=== PATIENT | female | born 1970 | race American Indian/Alaskan Native ===

== ENCOUNTER 2019-09-03 10:30 | Observation (INO) | payer BC, MEDICARE ==
--- NOTE | 2019-09-03 11:07 | Consultation ---
History of Present Illness History of present illness: [facility] Date of Service:09/03/2019 10:50:04 Impression: RO Acute Ischemic Stroke Comments: 49 YO F with h/o DM, multiple strokes with residual mild left sided weakness and HTN presented with worsening left sided weakness and new onset numbness, recurrence of old stroke symptoms vs new stroke. Metrics: Last Known Well: 09/03/2019 03:00:00 [facility] Notification Time: 09/03/2019 10:49:15 Arrival Time: 09/03/2019 10:30:00 Stamp Time: 09/03/2019 10:50:04 Time First Login Attempt: 09/03/2019 10:53:56 Video Start Time: 09/03/2019 10:53:56 Symptoms: left sided weakness NIHSS Start Assessment Time: 09/03/2019 10:59:46 Patient is not a candidate for tPA. Patient was not deemed candidate for tPA thrombolytics because of Last Well Known Above 4.5 Hours. Video End Time: 09/03/2019 11:05:24 CT head showed no acute hemorrhage or acute core infarct. Advanced imaging was not obtained as the presentation was not suggestive of Large Vessel Occlusive Disease. ER Physician notified of the decision on thrombolytics management on 09/03/2019 11:05:25 Our recommendations are outlined below. Recommendations: Activate Stroke Protocol Admission/Order Set Stroke/Telemetry Floor Neuro Checks Bedside Swallow Eval DVT Prophylaxis IV Fluids, Normal Saline Head of Bed Below 30 Degrees Euglycemia and Avoid Hyperthermia (PRN Acetaminophen) Initiate Aspirin 81 MG Daily infectious/metabolic wokrup Recommended Scan: MRI Head Carotid Dopplers Lipid Panel to Be Obtained, if Not Done in the Last Three Months Therapies: Physical Therapy, Occupational Therapy, Speech Therapy Assessment When Applicable Dysphaghia Screen: Swallow Evaluation, Bedside NPO Until Swallow Evaluation DVT prophylaxis: Choice of Primary Team Disposition: Follow up with Teleneurology Follow up Sign Out: Discussed with Emergency Department Provider History of Present Illness: Patient is a 49 year old Female. Patient was brought by private transportation with symptoms of left sided weakness 49 YO F with h/o DM, multiple strokes with residual mild left sided weakness and HTN presented with worsening left sided weakness and new onset numbness. she went to bed at 3 AM and woke up with symptoms. CT head showed no acute hemorrhage or acute core infarct. Examination: BP(148/86),Blood Glucose(387) 1A: Level of Consciousness - Alert; keenly responsive+ 0 1B: Ask Month and Age - Both Questions Right+ 0 1C: Blink Eyes & Squeeze Hands - Performs Both Tasks+ 0 2: Test Horizontal Extraocular Movements - Normal+ 0 3: Test Visual Yusuf - No Visual Loss+ 0 4: Test Facial Palsy (Use Grimace if Obtunded) - Normal symmetry+ 0 5A: Test Left Arm Motor Drift - Drift, but doesn't hit bed+ 1 5B: Test Right Arm Motor Drift - No Drift for 10 Seconds+ 0 6A: Test Left Leg Motor Drift - Drift, but doesn't hit bed+ 1 6B: Test Right Leg Motor Drift - No Drift for 5 Seconds+ 0 7: Test Limb Ataxia (FNF/Heel-Muse) - No Ataxia+ 0 8: Test Sensation - Mild-Moderate Loss: Less Sharp/More Dull+ 1 9: Test Language/Aphasia - Normal; No aphasia+ 0 10: Test Dysarthria - Mild-Moderate Dysarthria: Slurring but can be understood+ 1 11: Test Extinction/Inattention - No abnormality+ 0 NIHSS Score:4 Patient was informed the Neurology Consult would happen via TeleHealth consult by way of interactive audio and video telecommunications and consented to receiving care in this manner. Due to the immediate potential for life-threatening deterioration due to underlying acute neurologic illness, I spent 35 minutes providing critical care. This time includes time for face to face visit via telemedicine, review of medical records, imaging studies and discussion of findings with providers, the patient and/or family. Dr Lianet Todd [facility] Case [id number] Medications and Allergies Allergies Allergy/AdvReac Type Severity Reaction Status Date / Time No Known Allergies Allergy Unverified 09/03/19 10:32 Results - Laboratory Findings Abnormal Lab Findings: Abnormal Labs 09/03/19 10:54 POC Glucose 387 H
--- NOTE | 2019-09-03 11:20 | Cat Scan Report ---
NONENHANCED CT SCAN OF THE BRAIN: INDICATION: Left-sided numbness TECHNIQUE: Routine CT head without contrast. Sagittal and coronal reformatted images were obtained. A ll CT scans at this location are performed using CT dose reduction for ALARA by means of automated ex posure control. COMPARISON: None. FINDINGS: BRAIN / INTRACRANIAL CONTENTS: Hemorrhage:No intracranial hemorrhage; no subarachnoid hemorrhage Stroke mimics: No subdural or epidural hematoma or space taking lesion Acute/subacute territorial infarction: Nichols-white matter interface: Normal Insular cortex: Normal Basal ganglia: Normal Wedge shaped parenchymal low density area: Not present Cortical sulci: Not effaced Lacunar infarctions: None Vasculopathy: Dense middle cerebral artery sign: Not present Internal carotid artery terminus: Normal Basilar artery:Normal Middle cerebral artery branches in the sylvian fissure (Dot sign): Normal Calcified embolus: Not present ASPECT score: Not applicable Chronic lesions:None White matter: Periventricular and deep hemispheric white matter are normal Craniocervical junction:No significant abnormality Orbits:No significant abnormality Paranasal sinuses/mastoids:No significant abnormality Additional findings: Volume loss is seen in the cerebellar vermis: Temporal horn tips are mildly prom inent bilaterally IMPRESSION: No acute subacute infarction This exam was performed as part of a code stroke protocol. The exam was completed at [facility] on 09/03/2019 10:10 AM. The exam was reviewed at 10:[address] Soto was notified at 10:15 AM. Signer Name: Pino Mitchell MD Signed: 09/03/2019 11:16 AM Workstation Name: [email or web address]
--- NOTE | 2019-09-03 11:25 | XRay Report ---
CHEST 1 VIEW 09/03/2019 11:04 AM INDICATION / CLINICAL INFORMATION: Weakness. COMPARISON: None available. FINDINGS: SUPPORT DEVICES: None. HEART / MEDIASTINUM: No significant abnormality. LUNGS / PLEURA: No significant pulmonary or pleural abnormality. No pneumothorax. ADDITIONAL FINDINGS: No significant additional findings. IMPRESSION: 1. No acute findings. Signer Name: Erick Matute MD Signed: 09/03/2019 11:21 AM Workstation Name: [id number]
[2019-09-03 12:09] LABS: Basophils # (Auto) 0.1 K/mm3 (0.0-0.1); Basophils % (Auto) 1.1 % (0.0-1.8); Eosinophils # (Auto) 0.1 K/mm3 (0.0-0.4); Eosinophils % (Auto) 2.8 % (0.0-4.3); Hematocrit 40.5 % (30.3-42.9); Hemoglobin 13.2 gm/dl (10.1-14.3); Lymphocytes # (Auto) 1.5 K/mm3 (1.2-5.4); Lymphocytes % (Auto) 30.3 % (13.4-35.0); Mean Corpuscular HGB Conc 33 % (30-34); Mean Corpuscular Volume 88 fl (79-97); Monocytes # (Auto) 0.3 K/mm3 (0.0-0.8); Monocytes % (Auto) 5.5 % (0.0-7.3); Platelet Count 243 K/mm3 (140-440); Red Blood Count 4.59 M/mm3 (3.65-5.03)
[2019-09-03 12:17] LABS: INR 0.91 (0.87-1.13)
[2019-09-03 12:18] LABS: Partial Thromboplastin Time 26.5 Sec. (24.2-36.6)
[2019-09-03 12:31] LABS: BUN/Creatinine Ratio 9; Blood Urea Nitrogen 8 mg/dL (7-17); Calcium 9.7 mg/dL (8.4-10.2); Hemolysis Index 6
[2019-09-03] MEDS ORDERED: ASPIRIN 81 MG TAB CHEW PO ONE (13:08)
--- NOTE | 2019-09-03 13:11 | Emergency Department Report ---
ED Neuro Deficit HPI - General Chief Complaint: Neuro Symptoms/Deficit Stated Complaint: RT SIDE TINGLE/CHEST PAIN Time Seen by Provider: 09/03/19 10:51 Source: patient Mode of arrival: Ambulatory Limitations: No Limitations - History of Present Illness Initial Comments: Patient reports she awoke this morning with tingling numbness and weaknes on the left side of her body. Last reported normal last night. Reports hx of DM. Reports compliant with medications but that she does not check her BG at home. Reports hx of 4 CVA. - Related Data Allergies/Adverse Reactions: Allergies Allergy/AdvReac Type Severity Reaction Status Date / Time No Known Allergies Allergy Unverified 09/03/19 10:32 ED Review of Systems ROS: Stated complaint: RT SIDE TINGLE/CHEST PAIN Other details as noted in HPI Other: GENERAL: No weight change, fatigue, fever, chills, or night sweats SKIN: No changes in skin or hair, no itching, no rashes, no jaundice HEAD: No trauma EYES: No blurriness, tearing, itching, acute visual loss, conjunctival discoloration, or scleral icterus EARS: No hearing loss, tinnitus, vertigo, or earache NOSE: No rhinorrhea, stuffiness, sneezing, itching, or epistaxis MOUTH: No bleeding gums, hoarseness, sore throat, or swelling CARDIAC: No new murmur, chest pain, palpitations, dyspnea on exertion, orthopnea, PND, or edema RESPIRATORY: No shortness of breath, wheeze, cough, sputum production, hemoptysis GI: No abdominal pain, nausea, vomiting, dysphagia, diarrhea, constipation, hematemesis, melena, hematochezia URINARY: No frequency, urgency, polyuria, dysuria, hematuria, or incontinence MUSCULOSKELETAL: No muscle weakness, joint stiffness, decrease in range of motion, redness, swelling NEUROLOGIC: Left sided weakness, numbness, tingling. No headache, syncope, loss of sensation, tremors, paralysis, seizures HEMATOLOGIC: No anemia, easy bruising, bleeding, petechiae, or purpura ENDOCRINE: No hot or cold intolerance, sweating, polyuria, polydipsia or, polyphagia no thyroid problems PSYCHIATRIC: No change in mood, no anxiety, no depression ED Past Medical Hx - Past Medical History Hx Diabetes: Yes Hx Asthma: Yes Additional medical history: PT HAS HX OF STROKE X 4 WITH LEFT SIDE DEFICIT - Surgical History Additional Surgical History: RIGHT KNEE REPLACEMENT. HYSTERECTOMY - Social History Smoking Status: Former Smoker Substance Use Type: None ED Neuro Physical Exam - General Limitations: No Limitations Suspected Stroke: Yes - NIHSS Assessment Interval: Baseline 1a. Level of Consciousness: alert/keenly responsive 1b. LOC Questions: answers both correctly 1c. LOC Commands: performs tasks correctly 2. Best Gaze: normal 3. Visual: no visual loss 4. Facial Palsy: normal symmetrical movement 5b. Motor Arm Right: no drift 5a. Motor Arm Left: no drift 6a. Motor Leg Left: no drift 6b. Motor Leg Right: no drift 7. Limb Ataxia: absent 8. Sensory: mild/moderate sensory loss 9. Best Language: no aphasia 10. Dysarthria: normal 11. Extinction/Inattention: no abnormality Total Score: 1 Stroke Severity: Minor Stroke - Other Other exam information: GENERAL: Patient in no acute distress HEAD: Normocephalic, atraumatic EYES: PERRLA, EOM intact, no scleral icterus, no conjunctival hemorrhage, visual mccall and acuity wnl NOSE: No tenderness, discharge, sinus tenderness MOUTH: No erythema, bleeding, exudate HEART: Regular rate and rhythm, no murmur, S1-S2 are auscultated, no edema, pulses are symmetric LUNGS: No respiratory distress. Bilateral breath sounds, No tachypnea, No retractions, No wheezing, rales, rhonchi ABDOMEN: Normal bowel sounds, abdomen soft, no tenderness, no rebound, no guarding, no distention, no masses, no CVA tenderness MUSCULOSKELETAL: Normal joint range of motion, no redness, no swelling, no tenderness NEUROLOGIC: GCS 15, Alert and Oriented x3, Cranial nerves intact, normal sensation, normal strength, no cerebellar deficit, NIHSS 1 SKIN: Skin is warm and dry, no wounds, no rashes ED Course Vital Signs 09/03/19 09/03/19 09/03/19 11:01 11:15 11:31 Temperature 98.4 F Pulse Rate 86 80 73 Respiratory 14 13 15 Rate Blood Pressure 148/86 148/86 Blood Pressure 148/86 [Right] O2 Sat by Pulse 98 98 98 Oximetry 09/03/19 09/03/19 09/03/19 11:45 12:00 12:15 Temperature Pulse Rate 82 76 76 Respiratory 12 10 L 18 Rate Blood Pressure 148/86 148/86 148/86 Blood Pressure [Right] O2 Sat by Pulse 98 98 98 Oximetry 09/03/19 09/03/19 09/03/19 12:31 12:45 13:00 Temperature Pulse Rate 77 71 78 Respiratory 14 16 13 Rate Blood Pressure 148/86 148/86 Blood Pressure [Right] O2 Sat by Pulse 97 99 97 Oximetry 09/03/19 13:15 Temperature Pulse Rate Respiratory 16 Rate Blood Pressure Blood Pressure [Right] O2 Sat by Pulse 97 Oximetry - Lab Data Result diagrams: 09/03/19 11:33 09/03/19 11:33 Lab Results 09/03/19 09/03/19 09/03/19 Range/Units 10:54 11:33 11:33 WBC 5.0 (4.5-11.0) K/mm3 RBC 4.59 (3.65-5.03) M/mm3 Hgb 13.2 (10.1-14.3) gm/dl Hct 40.5 (30.3-42.9) % MCV 88 (79-97) fl MCH 29 (28-32) pg MCHC 33 (30-34) % RDW 15.0 (13.2-15.2) % Plt Count 243 (140-440) K/mm3 Lymph % (Auto) 30.3 (13.4-35.0) % Placer % (Auto) 5.5 (0.0-7.3) % Eos % (Auto) 2.8 (0.0-4.3) % Baso % (Auto) 1.1 (0.0-1.8) % Lymph # 1.5 (1.2-5.4) K/mm3 Placer # 0.3 (0.0-0.8) K/mm3 Eos # 0.1 (0.0-0.4) K/mm3 Baso # 0.1 (0.0-0.1) K/mm3 Seg Neutrophils % 60.3 (40.0-70.0) % Seg Neutrophils # 3.0 (1.8-7.7) K/mm3 PT 12.3 (12.2-14.9) Sec. INR 0.91 (0.87-1.13) APTT 26.5 (24.2-36.6) Sec. Sodium (137-145) mmol/L Potassium (3.6-5.0) mmol/L Chloride (98-107) mmol/L Carbon Dioxide (22-30) mmol/L Anion Gap mmol/L BUN (7-17) mg/dL Creatinine (0.7-1.2) mg/dL Estimated GFR ml/min BUN/Creatinine Ratio % Glucose (65-100) mg/dL POC Glucose 387 H (70-105) Calcium (8.4-10.2) mg/dL Troponin T (0.00-0.029) ng/mL 09/03/19 Range/Units 11:33 WBC (4.5-11.0) K/mm3 RBC (3.65-5.03) M/mm3 Hgb (10.1-14.3) gm/dl Hct (30.3-42.9) % MCV (79-97) fl MCH (28-32) pg MCHC (30-34) % RDW (13.2-15.2) % Plt Count (140-440) K/mm3 Lymph % (Auto) (13.4-35.0) % Placer % (Auto) (0.0-7.3) % Eos % (Auto) (0.0-4.3) % Baso % (Auto) (0.0-1.8) % Lymph # (1.2-5.4) K/mm3 Placer # (0.0-0.8) K/mm3 Eos # (0.0-0.4) K/mm3 Baso # (0.0-0.1) K/mm3 Seg Neutrophils % (40.0-70.0) % Seg Neutrophils # (1.8-7.7) K/mm3 PT (12.2-14.9) Sec. INR (0.87-1.13) APTT (24.2-36.6) Sec. Sodium 141 (137-145) mmol/L Potassium 4.3 (3.6-5.0) mmol/L Chloride 100.5 (98-107) mmol/L Carbon Dioxide 19 L (22-30) mmol/L Anion Gap 26 mmol/L BUN 8 (7-17) mg/dL Creatinine 0.9 (0.7-1.2) mg/dL Estimated GFR > 60 ml/min BUN/Creatinine Ratio 9 % Glucose 410 H (65-100) mg/dL POC Glucose (70-105) Calcium 9.7 (8.4-10.2) mg/dL Troponin T < 0.010 (0.00-0.029) ng/mL When compared to previous EKG there are: no significant change - Radiology Data Radiology results: report reviewed - Medical Decision Making At 1107 neurology call back. Recommends no acute intervention. No TPA. Admit for CVA evaluation. Patient comfortable. Updated with results. Plan admit for further evaluation. Hospitalist updated and accepts admission. Critical care attestation.: If time is entered above; I have spent that time in minutes in the direct care of this critically ill patient, excluding procedure time. ED Disposition Clinical Impression: Hyperglycemia CVA (cerebral vascular accident) Qualifiers: CVA mechanism: unspecified Qualified Code(s): I63.9 - Cerebral infarction, unspecified Disposition: OP ADMIT IP TO THIS HOSP Is pt being admited?: Yes Condition: Stable [place] Documentation - information: Height 5 ft 6 in - Assessment Assessment Interval: Baseline - Level of Consciousness 1a. Level of Consciousness: alert/keenly responsive - LOC Questions 1b. LOC Questions: answers both correctly - LOC Command 1c. LOC Commands: performs tasks correctly - Best Gaze 2. Best Gaze: normal - Visual 3. Visual: no visual loss - Facial Palsy 4. Facial Palsy: normal symmetrical movement - Motor Arm 5a. Motor Arm Left: no drift 5b. Motor Arm Right: no drift - Motor Leg 6a. Motor Leg Left: no drift 6b. Motor Leg Right: no drift - Limb Ataxia 7. Limb Ataxia: absent - Sensory 8. Sensory: mild/moderate sensory loss - Best Language 9. Best Language: no aphasia - Dysarthria 10. Dysarthria: normal - Extinction and Inattention 11. Extinction/Inattention: no abnormality - Scoring Total Score: 1 Stroke Severity: Minor Stroke
[2019-09-03] MEDS ORDERED: SODIUM CHLORIDE 0.9% 1000 ML 2,000 ML IV ONE (13:38)
[2019-09-03] MEDS ORDERED: INSULIN REGULAR, HUMAN 100 UNITS/1 ML IV ONE (13:38)
[2019-09-03] MEDS ORDERED: ONDANSETRON 4 MG/2 ML INJ IV PRN ×2 (13:43→15:00)
[2019-09-03] MEDS ORDERED: ACETAMINOPHEN 325 MG TAB PO PRN ×2 (13:43→15:00)
[2019-09-03 14:17] LABS: Amphetamine Screen,Urine PRESUMPTIVE NEGATIVE; Benzodiazepines Screen,Urine PRESUMPTIVE NEGATIVE; Cannabinoid Screen,Urine PRESUMPTIVE NEGATIVE; Cocaine Screen,Urine PRESUMPTIVE NEGATIVE; Methadone Screen,Urine PRESUMPTIVE NEGATIVE; Opiate Screen,Urine PRESUMPTIVE NEGATIVE
[2019-09-03 14:21] LABS: Bacteria,Urine 2+ /HPF (Negative); Bilirubin,Urine NEG (Negative); Blood,Urine NEG (Negative); Color,Urine Straw (Yellow); Protein,Urine <15 mg/dL mg/dL (Negative); Urobilinogen,Urine < 2.0 mg/dL (<2.0)
[2019-09-03] MEDS ORDERED: oxyCODONE /ACETAMINOPHEN 5-325MG TAB PO PRN (15:00)
[2019-09-03] MEDS ORDERED: MAGNESIUM HYDROXIDE (MOM) ORAL LIQD UDC PO PRN (15:00)
[2019-09-03] MEDS ORDERED: ALBUTEROL 2.5 MG/3 ML NEBU IH PRN (15:00)
[2019-09-03] MEDS ORDERED: METOCLOPRAMIDE 10 MG TAB PO PRN (15:00)
[2019-09-03] MEDS ORDERED: PROMETHAZINE 25 MG RECT SUPP PR PRN (15:00)
[2019-09-03] MEDS ORDERED: DEXTROSE 50% IN WATER (25GM) 50 ML SYRINGE IV PRN (15:03)
--- NOTE | 2019-09-03 18:05 | History and Physical Report ---
History of Present Illness Date of examination: 09/03/19 Date of admission: 09/03/19 13:43 Chief complaint: slurred speech History of present illness: Patient is a 49 YO F with h/o DM, multiple strokes with residual mild left sided weakness and HTN presented with worsening left sided weakness and new onset numbness, recurrence of old stroke symptoms vs new stroke. his morning with tingling numbness and weaknes on the left side of her body. Last reported normal last night. Reports hx of DM. Reports compliant with medications except her aspirin which she states she stopped taking a while ago. Her history is rather vague. But that she does not check her BG at home. Reports hx of 4 CVA. During my exam there is a mild right facial droop still evident although she is unable to tell me her baseline except that she is had multiple strokes and I am not sure if this is still residual. She is accompanied by family member who could not provide any further information. In the ED she was deemed not a candidate for TPA. According to telemetry neurology her last well-known time was 3 AM on the day of admission and she presented at 1049 outside the window for TPA. Pt reports she recently relocated to [place] Past History Past Medical History: diabetes, hypertension, hyperlipidemia, stroke Past Surgical History: Other Social history: no significant social history, lives with family, full code Family history: no significant family history Medications and Allergies Allergies Allergy/AdvReac Type Severity Reaction Status Date / Time No Known Allergies Allergy Unverified 09/03/19 10:32 Home Medications Medication Instructions Recorded Confirmed Last Taken Type metFORMIN [Glucophage] 500 mg PO BID 09/03/19 09/03/19 09/03/19 History 500 Active Meds: Active Medications Acetaminophen (Tylenol) 650 mg PO Q4H PRN PRN Reason: Pain, Mild (1-3) Albuterol (Proventil) 2.5 mg IH Q3HRT PRN PRN Reason: Shortness Of Breath Albuterol/Ipratropium (Duoneb *Not For Prn Use*) 1 ampul IH Q6HRT [facility] Aspirin (Aspirin) 325 mg PO QDAY [facility] Atorvastatin Calcium (Lipitor) 40 mg PO QHS JOSE LUIS Bisacodyl (Dulcolax) 10 mg OR QDAY PRN PRN Reason: Constipation Dextrose (D50w (25gm) Syringe) 50 ml IV Q30MIN PRN; Protocol PRN Reason: Hypoglycemia Insulin Human Lispro (Humalog) 0 unit SUB-Q ACHS JOSEL UIS; Protocol Magnesium Hydroxide (Milk Of Magnesia) 30 ml PO Q4H PRN PRN Reason: Constipation Metoclopramide HCl (Reglan) 10 mg PO Q6H PRN PRN Reason: Nausea And Vomiting Ondansetron HCl (Zofran) 4 mg IV Q8H PRN PRN Reason: Nausea And Vomiting Oxycodone/Acetaminophen (Percocet 5/325) 1 tab PO Q6H PRN PRN Reason: Pain, Moderate (4-6) Promethazine HCl (Phenergan) 25 mg OR Q6H PRN PRN Reason: Nausea And Vomiting Sodium Chloride (Sodium Chloride Flush Syringe 10 Ml) 10 ml IV BID JOSE LUIS Sodium Chloride (Sodium Chloride Flush Syringe 10 Ml) 10 ml IV PRN PRN PRN Reason: LINE FLUSH Sodium Chloride (Sodium Chloride Flush Syringe 10 Ml) 10 ml IV PRN PRN PRN Reason: LINE FLUSH Review of Systems All systems: negative Constitutional: no weight loss, no weight gain, no fever, no chills Ears, nose, mouth and throat: no decreased hearing, no nasal discharge, no swelling in mouth, no swelling in throat Cardiovascular: no orthopnea, no palpitations, no rapid/irregular heart beat, no edema, no syncope, no lightheadedness Respiratory: no cough, no cough with sputum, no excessive sputum Gastrointestinal: no abdominal pain, no vomiting, no diarrhea, no hematochezia, no early satiety Musculoskeletal: arm numbness/tingling Neurological: transient paralysis, paralysis, parathesias, tingling Psychiatric: no suicidal ideation Endocrine: no cold intolerance, no heat intolerance, no polyphagia, no excessive thirst, no palpatations Hematologic/Lymphatic: no easy bruising Allergic/Immunologic: no urticaria Exam - Physical Exam Narrative exam: GENERAL: Patient in no acute distress, speech is mildly slurred there is right facial droop HEAD: Normocephalic, atraumatic EYES: PERRLA, EOM intact, no scleral icterus, no conjunctival hemorrhage, visual mccall and acuity wnl NOSE: No tenderness, discharge, sinus tenderness MOUTH: No erythema, bleeding, exudate HEART: Regular rate and rhythm, no murmur, S1-S2 are auscultated, no edema, pulses are symmetric LUNGS: No respiratory distress. Bilateral breath sounds, No tachypnea, No retractions, No wheezing, rales, rhonchi ABDOMEN: Normal bowel sounds, abdomen soft, no tenderness, no rebound, no guarding, no distention, no masses, no CVA tenderness MUSCULOSKELETAL: Normal joint range of motion, no redness, no swelling, no tenderness NEUROLOGIC: GCS 15, Alert and Oriented x3, with mild right facial droop with noted left facial weakness and sensory loss also left arm minimally affected from prior stroke. Patient. Otherwise cranial nerves intact, normal sensation, normal strength, no cerebellar deficit, NIHSS 1 SKIN: Skin is warm and dry, no wounds, no rashes - Constitutional Vitals: Temp Pulse Resp BP Pulse Ox 98.4 F 74 20 124/74 98 09/03/19 11:31 09/03/19 14:15 09/03/19 15:09 09/03/19 14:15 09/03/19 15:09 Results - Labs CBC & Chem 7: 09/03/19 11:33 09/03/19 11:33 Labs: Laboratory Last Values WBC 5.0 K/mm3 (4.5-11.0) 09/03/19 11:33 RBC 4.59 M/mm3 (3.65-5.03) 09/03/19 11:33 Hgb 13.2 gm/dl (10.1-14.3) 09/03/19 11:33 Hct 40.5 % (30.3-42.9) 09/03/19 11:33 MCV 88 fl (79-97) 09/03/19 11:33 MCH 29 pg (28-32) 09/03/19 11:33 MCHC 33 % (30-34) 09/03/19 11:33 RDW 15.0 % (13.2-15.2) 09/03/19 11:33 Plt Count 243 K/mm3 (140-440) 09/03/19 11:33 Lymph % (Auto) 30.3 % (13.4-35.0) 09/03/19 11:33 [place] % (Auto) 5.5 % (0.0-7.3) 09/03/19 11:33 Eos % (Auto) 2.8 % (0.0-4.3) 09/03/19 11:33 Baso % (Auto) 1.1 % (0.0-1.8) 09/03/19 11:33 Lymph # 1.5 K/mm3 (1.2-5.4) 09/03/19 11:33 [place] # 0.3 K/mm3 (0.0-0.8) 09/03/19 11:33 Eos # 0.1 K/mm3 (0.0-0.4) 09/03/19 11:33 Baso # 0.1 K/mm3 (0.0-0.1) 09/03/19 11:33 Seg Neutrophils % 60.3 % (40.0-70.0) 09/03/19 11:33 Seg Neutrophils # 3.0 K/mm3 (1.8-7.7) 09/03/19 11:33 PT 12.3 Sec. (12.2-14.9) 09/03/19 11:33 INR 0.91 (0.87-1.13) 09/03/19 11:33 APTT 26.5 Sec. (24.2-36.6) 09/03/19 11:33 Sodium 141 mmol/L (137-145) 09/03/19 11:33 Potassium 4.3 mmol/L (3.6-5.0) 09/03/19 11:33 Chloride 100.5 mmol/L (98-107) 09/03/19 11:33 Carbon Dioxide 19 mmol/L (22-30) L 09/03/19 11:33 Anion Gap 26 mmol/L 09/03/19 11:33 BUN 8 mg/dL (7-17) 09/03/19 11:33 Creatinine 0.9 mg/dL (0.7-1.2) 09/03/19 11:33 Estimated GFR > 60 ml/min 09/03/19 11:33 BUN/Creatinine Ratio 9 % 09/03/19 11:33 Glucose 410 mg/dL (65-100) H 09/03/19 11:33 POC Glucose 196 (70-105) H 09/03/19 17:03 Calcium 9.7 mg/dL (8.4-10.2) 09/03/19 11:33 Troponin T < 0.010 ng/mL (0.00-0.029) 09/03/19 11:33 Urine Color Straw (Yellow) 09/03/19 13:40 Urine Turbidity Clear (Clear) 09/03/19 13:40 Urine pH 6.0 (5.0-7.0) 09/03/19 13:40 Ur Specific [place] 1.028 (1.003-1.030) 09/03/19 13:40 Urine Protein <15 mg/dl mg/dL (Negative) 09/03/19 13:40 Urine Glucose (UA) >=500 mg/dL (Negative) 09/03/19 13:40 Urine Ketones Neg mg/dL (Negative) 09/03/19 13:40 Urine Blood Neg (Negative) 09/03/19 13:40 Urine Nitrite Neg (Negative) 09/03/19 13:40 Urine Bilirubin Neg (Negative) 09/03/19 13:40 Urine Urobilinogen < 2.0 mg/dL (<2.0) 09/03/19 13:40 Ur Leukocyte Esterase Neg (Negative) 09/03/19 13:40 Urine WBC (Auto) 4.0 /HPF (0.0-6.0) 09/03/19 13:40 Urine RBC (Auto) 9.0 /HPF (0.0-6.0) 09/03/19 13:40 U Epithel Cells (Auto) 5.0 /HPF (0-13.0) 09/03/19 13:40 Urine Bacteria (Auto) 2+ /HPF (Negative) 09/03/19 13:40 Urine Opiates Screen Presumptive negative 09/03/19 13:40 Urine Methadone Screen Presumptive negative 09/03/19 13:40 Ur Barbiturates Screen Presumptive negative 09/03/19 13:40 Ur Phencyclidine Scrn Presumptive negative 09/03/19 13:40 Ur Amphetamines Screen Presumptive negative 09/03/19 13:40 U Benzodiazepines Scrn Presumptive negative 09/03/19 13:40 Urine Cocaine Screen Presumptive negative 09/03/19 13:40 U Marijuana (THC) Screen Presumptive negative 09/03/19 13:40 Drugs of Abuse Note Disclamer 09/03/19 13:40 Assessment and Plan Assessment and plan: Patient is a 49 YO F with h/o DM, multiple strokes with residual mild left sided weakness and HTN presented with worsening left sided weakness and new onset numbness, recurrence of old stroke symptoms vs new stroke. his morning with tingling numbness and weakness on the left side of her body. Last reported normal last night. Reports hx of DM. Reports compliant with medications except her aspirin which she states she stopped taking a while ago. Her history is rather vague. But that she does not check her BG at home. Reports hx of 4 CVA. During my exam there is a mild left facial droop still evident although she is unable to tell me her baseline except that she is had multiple strokes and I am not sure if this is still residual. She is accompanied by family member who could not provide any further information. In the ED she was deemed not a candidate for TPA. According to telemetry neurology her last well-known time was 3 AM on the day of admission and she presented at 1049 outside the window for TPA. IMPRESSION: No acute subacute infarction TIA History of stroke Hypertension Diabetes mellitus Noncompliant COPD Plan Admit with stroke protocol Telemetry neurology input noted COPD Meds Neurology consult Therapies: Full dose aspirin, statin, A1c, physical Therapy, Occupational Therapy, Speech Therapy Assessment When Applicable Imaging studies: CT head reviewed and unremarkable, obtain carotid ultrasound, 2D echocardiogram with stroke protocol, MRI head if warranted. Dysphaghia Screen: Swallow Evaluation, Bedside NPO Until Swallow Evaluation DVT prophylaxis: Heparin Advanced care planning for 35 minutes plan of care discussed with family anticipate discharge in 24 to 48 hours if stable. Advance Directives: Yes Plan of care discussed with patient/family: Yes
--- NOTE | 2019-09-03 18:29 | Vascular Lab Report ---
"DUPLEX DOPPLER ULTRASOUND CAROTID, BILATERAL INDICATION: CVA. FINDINGS: RIGHT CAROTID: Small amount of atherosclerotic plaque. Right ICA peak systolic velocity: 84 cm/sec. Right Vertebral Artery: Antegrade flow. LEFT CAROTID: Small amount of atherosclerotic plaque. Left ICA peak systolic velocity: 95 cm/sec. Left Vertebral Artery: Antegrade flow. IMPRESSION: 1. Right Internal Carotid Artery: Less than 50% diameter stenosis. 2. Left Internal Carotid Artery: Less than 50% diameter stenosis. Velocity criteria are extrapolated from diameter data as defined by the Society of Radiologists in Ul trasound Consensus Conference, Radiology 2003; 229;340-346. Degree of Stenosis (%) || ICA PSV (cm/sec) || Plaque estimate (%) || ICA/CCA PSV Ratio Normal <125 None <2.0 <50 <125 <50 <2.0 50-69 125-230 50 2.0-4.0 70 but less than 100 >230 50 >4.0 Near occlusion High, low, or none visible variable Total occlusion None visible; no lumen N/A Signer Name: Sincere Styles MD Signed: 09/03/2019 6:25 PM Workstation Name: [id number]"
--- NOTE | 2019-09-03 18:57 | Progress Note ---
Subjective Date of service: 09/03/19 Interval history: Neuro patient seen and full assessment made based on history had on prior stroke current attack is stroke/TIA like a/w left facial weakness and sensory loss and the left luh is effected minimally suspect minor stroke clinically minimal verry non specific changes seen on the MRI today no real evidence of clear MRI of large ischemic stroke or MS would treat medically check echo and carotid Objective - Vital Sign Vital Signs - 12hr 09/03/19 09/03/19 09/03/19 11:01 11:15 11:31 Temperature 98.4 F Pulse Rate 86 80 73 Respiratory 14 13 15 Rate Blood Pressure 148/86 148/86 Blood Pressure 148/86 [Right] O2 Sat by Pulse 98 98 98 Oximetry 09/03/19 09/03/19 09/03/19 11:45 12:00 12:15 Temperature Pulse Rate 82 76 76 Respiratory 12 10 L 18 Rate Blood Pressure 148/86 148/86 148/86 Blood Pressure [Right] O2 Sat by Pulse 98 98 98 Oximetry 09/03/19 09/03/19 09/03/19 12:31 12:45 13:00 Temperature Pulse Rate 77 71 78 Respiratory 14 16 13 Rate Blood Pressure 148/86 148/86 Blood Pressure [Right] O2 Sat by Pulse 97 99 97 Oximetry 09/03/19 09/03/19 09/03/19 13:15 13:31 13:45 Temperature Pulse Rate 71 73 Respiratory 16 14 18 Rate Blood Pressure Blood Pressure [Right] O2 Sat by Pulse 97 99 100 Oximetry 09/03/19 09/03/19 09/03/19 14:01 14:15 15:09 Temperature Pulse Rate 74 Respiratory 20 21 20 Rate Blood Pressure 124/74 124/74 Blood Pressure [Right] O2 Sat by Pulse 99 99 98 Oximetry - Laboratory Findings CBC and BMP: 09/03/19 11:33 09/03/19 11:33 Abnormal Lab Findings: Abnormal Labs 09/03/19 09/03/19 09/03/19 10:54 11:33 17:03 Carbon Dioxide 19 L Glucose 410 H POC Glucose 387 H 196 H
--- NOTE | 2019-09-03 19:05 | Magnetic Resonance Report ---
MRI BRAIN 09/03/2019 INDICATION / CLINICAL INFORMATION: CVA. Left-sided weakness TECHNIQUE: Multiplanar, multisequence MR images of the brain were obtained. COMPARISON: None available. FINDINGS: BRAIN / INTRACRANIAL CONTENTS: Unenhanced MR images of the brain demonstrate no evidence of acute int racranial abnormality. Ventricles and sulci are normal in size and shape. There is no evidence of ischemic injury, demyelination, hemorrhage, or mass. There are no abnormal ex tra-axial fluid collections. EXTRACRANIAL: Unremarkable CRANIOCERVICAL JUNCTION: No significant abnormality. VASCULAR FLOW-VOIDS: No significant abnormality. IMPRESSION: Negative unenhanced MRI of the brain. Signer Name: Parth Grimes MD Signed: 09/03/2019 7:00 PM Workstation Name: [id number]
[2019-09-03] MEDS: IPRATROPIUM/ALBUTEROL SULFATE 3 ML AMPUL.NEB IH SCH (20:31)
[2019-09-03] MEDS: INSULIN LISPRO 100 UNIT/ML SUB-Q SCH (21:36)
[2019-09-04 01:03] VITALS: BP 128/61
[2019-09-04] MEDS: IPRATROPIUM/ALBUTEROL SULFATE 3 ML AMPUL.NEB IH SCH ×2 (02:47→09:10)
[2019-09-04 06:00] LABS: Chol/HDL Ratio 3.33 %
[2019-09-04] MEDS: INSULIN LISPRO 100 UNIT/ML SUB-Q SCH ×3 (07:02→12:48)
[2019-09-04] MEDS ORDERED: INSULIN REGULAR, HUMAN 100 UNITS/1 ML SUB-Q ONE (08:23)
--- NOTE | 2019-09-04 08:25 | Progress Note ---
Subjective Date of service: 09/04/19 Interval history: I went over the formal MRI dictated report per radiology... independent review same conclusion as my note and feel this is minor isthmic attack not MS or completed major stroke may be even small vessel disease a/w diabetes that does not image on MRI recommend diabetic control and medical management asa and statin discharge per hospitalist discretion Objective - Vital Sign Vital Signs - 12hr 09/03/19 09/03/19 09/03/19 20:36 20:37 20:49 Temperature Pulse Rate 74 Pulse Rate [ 89 Bilateral Throughout] Respiratory Rate Respiratory 20 Rate [Bilateral Throughout] Blood Pressure O2 Sat by Pulse 98 Oximetry 09/03/19 23:56 Temperature 97.9 F Pulse Rate 66 Pulse Rate [ Bilateral Throughout] Respiratory 20 Rate Respiratory Rate [Bilateral Throughout] Blood Pressure 128/61 O2 Sat by Pulse 94 Oximetry - Laboratory Findings CBC and BMP: 09/03/19 11:33 09/03/19 11:33 Abnormal Lab Findings: Abnormal Labs 09/03/19 09/03/19 09/03/19 10:54 11:33 17:03 Carbon Dioxide 19 L Glucose 410 H POC Glucose 387 H 196 H 09/03/19 21:40 Carbon Dioxide Glucose POC Glucose 369 H
[2019-09-04] MEDS ORDERED: BUDESONIDE 0.25 MG/2 ML NEBU IH SCH (08:30)
[2019-09-04] MEDS ORDERED: ARFORMOTEROL 15 MCG/2 ML NEBU IH SCH (08:30)
--- NOTE | 2019-09-04 09:37 | Discharge Summary ---
Providers - Providers Date of Admission: 09/03/19 13:43 Attending physician: ROLAND ODONNELL MD 09/03/19 15:00 Occupational Therapy Evaluate and Treat [CONS] Routine Comment: Reason For Exam: Neuro deficits Physical Therapy Evaluation and Treat [CONS] Routine Comment: Reason For Exam: Neuro deficits Speech Therapy Evaluation and Treat [CONS] Routine Reason For Exam: swallow eval 09/03/19 15:13 Consult to Physician [CONS] Routine Comment: Consulting Provider: CIERA POLLARD Physician Instructions: Reason For Exam: cva Primary care physician: [employer] Hospitalization Reason for admission: TIA Condition: Stable Hospital course: Patient is a 49 YO F with h/o DM, multiple strokes with residual mild left sided weakness and HTN presented with worsening left sided weakness and new onset numbness, recurrence of old stroke symptoms vs new stroke. his morning with tingling numbness and weakness on the left side of her body. Last reported normal last night. Reports hx of DM. Reports compliant with medications except her aspirin which she states she stopped taking a while ago. Her history is rather vague. But that she does not check her BG at home. Reports hx of 4 CVA. During my exam there is a mild left facial droop still evident although she is unable to tell me her baseline except that she is had multiple strokes and I am not sure if this is still residual. She is accompanied by family member who could not provide any further information. In the ED she was deemed not a candidate for TPA. According to telemetry neurology her last well-known time was 3 AM on the day of admission and she presented at 1049 outside the window for TPA. * Counselling provided to the patient about complaince with medication * Symptoms resolved. Neurology echoed better DM control, patient verbalized understanding * Prescriptions for ASA AND STATIN RENEWED. Patient denies any hx of Bleed IMPRESSION: No acute subacute infarction MR head- IMPRESSION: Negative unenhanced MRI of the brain. carotid us-IMPRESSION: 1. Right Internal Carotid Artery: Less than 50% diameter stenosis. 2. Left Internal Carotid Artery: Less than 50% diameter stenosis TIA History of stroke Hypertension Diabetes mellitus Noncompliant COPD Disposition: TO HOME OR SELFCARE Time spent for discharge: 35 MINS Core Measure Documentation - Palliative Care Palliative Care/ Comfort Measures: Not Applicable - Core Measures Any of the following diagnoses?: stroke - Stroke Discharge Requirements Statin for LDL = or >70 mg/dl on DC: Yes Anticoag for atrial fib/atrial flutter: Not Applicable Antithrombotic for ischemic stroke: Yes Exam - Physical Exam Narrative exam: GENERAL: Patient in no acute distress, speech NORMAL, there is right facial droop HEAD: Normocephalic, atraumatic EYES: PERRLA, EOM intact, no scleral icterus, no conjunctival hemorrhage, visual mccall and acuity wnl NOSE: No tenderness, discharge, sinus tenderness MOUTH: No erythema, bleeding, exudate HEART: Regular rate and rhythm, no murmur, S1-S2 are auscultated, no edema, pulses are symmetric LUNGS: No respiratory distress. Bilateral breath sounds, No tachypnea, No retractions, No wheezing, rales, rhonchi ABDOMEN: Normal bowel sounds, abdomen soft, no tenderness, no rebound, no guarding, no distention, no masses, no CVA tenderness MUSCULOSKELETAL: Normal joint range of motion, no redness, no swelling, no tenderness NEUROLOGIC: GCS 15, Alert and Oriented x3, with mild right facial droop with noted left facial weakness and sensory loss also left arm minimally affected from prior stroke. Patient. Otherwise cranial nerves intact, normal sensation, normal strength, no cerebellar deficit, NIHSS 1 SKIN: Skin is warm and dry, no wounds, no rashes - Constitutional Vitals: Temp Pulse Resp BP Pulse Ox 97.9 F 66 20 128/61 98 09/03/19 23:56 09/03/19 23:56 09/03/19 23:56 09/03/19 23:56 09/04/19 09:10 Plan Activity: advance as tolerated, fall precautions Diet: low fat, diabetic Special Instructions: record daily weights, record daily BP diary, record blood sugar diary Follow up with: PRIMARY CARE, [Primary Care Provider] - 3-5 Days CIERA POLLARD MD [Staff Physician] - 7 Days Prescriptions: AtorvaSTATin [Lipitor] 40 mg PO QHS #30 tablet Aspirin [Adult Aspirin] 81 mg PO DAILY #30 tablet.dr Coyle [Trulicity] 0.75 mg SQ DAILY #30 ml
[2019-09-04] MEDS ORDERED: metFORMIN 500 MG TAB PO SCH (10:00)
[2019-09-04] MEDS ORDERED: ASPIRIN 325 MG TAB PO SCH (10:00)
== END 2019-09-04 14:51 | disposition home or self-care (01) ==
LOC: ED 10:30 → INTOOBSV 13:43 → 4A 13:43
PROVIDERS: ADMIT Internal Medicine; ATTEND Internal Medicine
DX: G45.9 Transient cerebral ischemic attack, unspecified (principal); I63.9 Cerebral infarction, unspecified; I10 Essential (primary) hypertension; E11.65 Type 2 diabetes mellitus with hyperglycemia; J44.9 Chronic obstructive pulmonary disease, unspecified; E78.5 Hyperlipidemia, unspecified; Z91.14 Patient's other noncompliance with medication regimen; Z87.891 Personal history of nicotine dependence
CPT/HCPCS: 36415; 70450; 70551; 71045; 80048; 80061; 80307; 81001; 82962; 84484; 85025; 85610; 85652; 85730; 93005; 93010; 93880; 94640; 96372; 99284; A9270; G0378; J7030; J1815